=== PATIENT | male | born 1955 | race Caucasian/White ===

== ENCOUNTER 2017-02-17 15:39 | Inpatient (IN) | payer MEDICAID ==
[~2017-02-17] VITALS: Ht 175.3 cm; Wt 113.4 kg
[~2017-02-17 15:39] MED LIST: ADULT LOW DOSE81 MG PO; ASPIRIN325; ASPIRIN325 PO; ATIVAN1 MG; ATIVAN1 MG PO; ATORVASTATIN CA40 MG PO; AUGMENTIN 875875 MG PO; CELEXA 10 MG TA10 M1; CIPRO250 M2 PO; CLARITIN10 MG PO; FLOMAX0.4 MG PO; HYDROCODONE-AP1 EAC6 PO; HYDROXYZINE HCL25 M1 PO; HYDROXYZINE HCL50 MG PO; ISORDIL10 MG PO; ISOSORBIDE MONO60 M1 PO; LIPITOR80 MG PO; LISINOPRIL10 MG PO; LOPRESSOR 50 MG50 M1; LUNESTA3 MG PO; MECLIZINE HCL25 M1; MECLIZINE HCL25 M1 PO; MEDROL DOSPAK21 TAB PO; MIRAPEX0.5 MG; MIRAPEX0.5 MG PO; MIRTAZAPINE15 M1; MS CONTIN 30 MG30 M1 PO; NAPROSYN500 MG PO; NEURONTIN 300300 M1 PO; NITROGLYCERIN0.4 MG SUBLING; NITROQUICK0.4 MG PO; NITROSTAT0.4 MG; NORVASC10 MG PO; OMEPRAZOLE 20 M20 MG PO; ORADENT 0.1% DEN5 G1 TOP; OXYCODONE HCL15 MG PO; OXYCODONE-ACET1 EAC3 PO; OXYCONTIN10 M1 PO; OXYCONTIN20 M1 PO; OXYCONTIN30 MG; OXYCONTIN30 MG PO; OXYCONTIN60 MG PO; OXYCONTIN80 M1 PO; PANTOPRAZOLE SO40 M1 PO; PERCOCET 5-3251 EACH PO; PERCOCET PO; PLAVIX 75 MG TA75 MG PO; PREDNISONE 20 M20 MG PO; PROPRANOLOL 1010 M1 PO; PROTONIX40 M1 PO; RANEXA1000 MG PO; RANITIDINE HCL150 M1; REMERON15 MG PO; REQUIP 1 MG TABL1 M1; RISPERDAL0.5 MG PO; TAMSULOSIN HCL0.4 M1; TOPROL XL50 MG PO; TRAZODONE HCL100 MG PO; TRIAM60; XARELTO20 MG PO; ZANTAC 150MG T150 M1; ZANTAC 150MG T150 MG PO; ZOLOFT 50 MG TA50 M1 PO; ZOLOFT100 MG PO; ZOLOFT50 MG PO
[2017-02-17 15:40] VITALS: BP 135/85
[2017-02-17] MEDS ORDERED: SYNTHROID25 MCG PO (15:51)
[2017-02-17] MEDS ORDERED: PROTONIX40 M1 PO (15:52)
[2017-02-17] MEDS ORDERED: CLONIDINE0.1 PO (15:52)
[2017-02-17] MEDS ORDERED: FLEXERIL PO (15:53)
[2017-02-17] MEDS ORDERED: NEURONTIN 300300 M1 PO (15:53)
[2017-02-17] MEDS ORDERED: ZOLOFT50 MG PO (15:54)
[2017-02-17 15:58] LABS: ABSOLUTE BASOPHILS 0.1 thou/uL (0.0-0.2); ABSOLUTE EOSINOPHILS 0.3 thou/uL (0.0-0.7); ABSOLUTE LYMPHOCYTES 1.5 thou/uL (0.8-5.3); ABSOLUTE MONOCYTES 0.5 thou/uL (0.0-1.2); ABSOLUTE NEUTROPHILS 5.2 thou/uL (1.6-8.1); EOSINOPHILS 3.8 %; HEMATOCRIT 39.8 % (42.0-52.0); HEMOGLOBIN 13.2 gm/dL (14.0-18.0); LYMPHOCYTES 19.8 %; MCH 26.5 pg (26.0-34.0); MCHC 33.2 g/dL (28.0-37.0); MCV 79.9 fL (80.0-100.0); MONOCYTES 6.6 %; MPV 7.4 fl. (7.2-11.1); NUCLEATED RBCS 0 /100WBC; PLATELET COUNT* 228 thou/uL (150-400); POLYS 68.8 %; RBC 4.98 mil/uL (4.50-6.00); RDW-CV 14.9 % (10.5-14.5); WBC 7.5 thou/uL (4.0-11.0)
[2017-02-17 16:12] LABS: ANION GAP 5 mmol/L (7-16); BUN 12 mg/dL (7-18); CALCIUM 8.5 mg/dL (8.5-10.1); CHLORIDE 105 mmol/L (98-107); CO2 30 mmol/L (21-32); CREATININE 1.1 mg/dL (0.6-1.3); GLUCOSE 126 mg/dL (70-99); POTASSIUM 4.2 mmol/L (3.5-5.1); SODIUM 140 mmol/L (136-145)
[2017-02-17 16:22] LABS: ALBUMIN 3.6 g/dL (3.4-5.0); ALKALINE PHOSPHATASE 173 U/L (46-116); LIPASE 106 U/L (73-393); NT-PRO BRAIN NAT PEPTIDE 44 pg/mL (<300); SGOT 28 U/L (15-37); SGPT 58 U/L (30-65); TOTAL BILIRUBIN 0.6 mg/dL (<0.1-1.0); TOTAL PROTEIN 6.7 g/dL (6.4-8.2); TROPONIN-I LEVEL <0.06 ng/mL (<0.06)
[2017-02-17 18:21] VITALS: BP 152/82
[2017-02-17 18:48] VITALS: BP 158/86
[2017-02-17 20:30] VITALS: BP 146/79
[2017-02-18] VITALS: BP 134/79
[2017-02-18 03:51] VITALS: BP 96/54
[2017-02-18 07:38] LABS: CHOLESTEROL 109 mg/dL (<200); HDL CHOLESTEROL 40 mg/dL (>40); LDL CHOLESTEROL 38 mg/dL (<100); TC:HDL 2.7 Ratio (Not establshd); TRIGLYCERIDE 158 mg/dL (<150); VLDL 32 mg/dL (<40)
[2017-02-18 07:39] LABS: SERUM ASSESSMENT Clear
[2017-02-18 08:00] VITALS: BP 104/63
--- NOTE | 2017-02-18 10:57 | EKG ---
[place] [address] ELECTROCARDIOGRAM REPORT Name: INEZ,LEMUEL FIGUEROA Room: [address] ADM [place] .R.#: [id number] Admission: 02/17/17 Attend Phys: Joaquín Hidalgo MD Discharge: Date of : 57 Report #: [id number] THIS REPORT FOR: //name// [facility] ED Test Date: 2017-02-17 Test Time: 15:43:08 Pat Name: LEMUEL WILEY Department: Room: [facility] Gender: M Brake Lining Maker: NURIS : 1955 Requested By: Kyle Childers Order Number: [id number] MD: Wallace Shah Measurements Intervals [place] Rate: 83 P: 34 WI: 237 QRS: 20 QRSD: 110 T: 79 QT: 391 QTc: 460 Interpretive Statements Sinus rhythm Prolonged WI interval Borderline repolarization abnormality Compared to ECG 10/18/2014 21:25:55 No significant changes Electronically Signed On 02-18-2017 10:57:31 LINE DIRECTOR by Wallace Shah [email or web address] <ELECTRONICALLY SIGNED> By: Wallace Shah MD, [facility] 02/18/17 1057 1543 1543 Wallace Shah MD, [facility] /EPI
--- NOTE | 2017-02-18 11:12 | EKG ---
[place] [address] ELECTROCARDIOGRAM REPORT Name: LEUMEL WILEY Room: [address] ADM IN M.R.#: [id number] Admission: 02/17/17 Attend Phys: Joaquín Hidalgo MD Discharge: Date of : 57 Report #: [id number] THIS REPORT FOR: //name// [facility] Test Date: 2017-02-17 Test Time: 23:56:11 Pat Name: LEMUEL WILEY Department: Room: [address] Gender: M Merchandise Presentation Manager: ARACELIS : 1955 Requested By: Joaquín Hidalgo Order Number: [id number] Juan MD: Wallace Shah Measurements Intervals [place] Rate: 71 P: 52 AR: 226 QRS: -2 QRSD: 102 T: 90 QT: 401 QTc: 436 Interpretive Statements Sinus rhythm Prolonged AR interval Borderline repolarization abnormality Baseline wander in lead(s) V5 Electronically Signed On 02-18-2017 11:11:47 AGRICULTURAL AND FORESTRY SUPERVISOR by Wallace Shah [email or web address] <ELECTRONICALLY SIGNED> By: Wallace Shah MD, [facility] 02/18/17 1111 55 55 Wallace Shah MD, FACC /EPI
[2017-02-18 11:30] VITALS: BP 100/60
--- NOTE | 2017-02-18 14:44 | 2DMMODE ---
[place] [address] 2 D/M-MODE ECHOCARDIOGRAM Name: INEZLEMUEL Room: [address] IN .R.#: [id number] Admission: 02/17/17 Attend Phys: Joaquín Hidalgo, Discharge: Date of : 57 Date of Service: 02/18/17 1444 Report #: [id number] THIS REPORT FOR: //name// APPROVED REPORT Study performed: 02/18/2017 09:19:07 EXAM: Comprehensive 2D, Doppler, and color-flow Echocardiogram Patient Location: Bedside BSA: 2.29 HR: 67 bpm BP: 96/54 mmHg Other Information Study Quality: Technically Limited Indications Arrhythmia Chest Pain Hypertension/HDD 2D Dimensions IVSd: 12.49 (7-11mm) LVOT Diam: 22.19 (18-24mm) LVDd: 48.10 mm PWd: 12.09 (7-11mm) Ascending Ao: 36.61 (22-36mm) LVDs: 27.91 (25-40mm) Aortic Root: 35.05 mm Volumes Left Atrial Volume (Systole) LA ESV Index: 20.20 mL/m2 Aortic Valve AoV Peak Jus.: 1.14 m/s AO Peak Gr.: 5.18 mmHg LVOT Max P.18 mmHg AO Mean Gr.: 3.00 mmHg LVOT Mean P.12 mmHg LVOT Max V: 1.02 m/s AO V2 VTI: 20.45 cm LVOT Mean V: 0.67 m/s GENEVA (VTI): 4.40 cm2 LVOT V1 VTI: 23.28 cm Mitral Valve E/A Ratio: 0.96 MV Decel. Time: 225.84 ms MV E Max Jus.: 0.64 m/[place] [address] 2 D/M-MODE ECHOCARDIOGRAM Name: LEMUEL WILEY Room: [address] IN ..#: [id number] Admission: 02/17/17 Attend Phys: Joaquín Hidalgo, Discharge: Date of : 57 Date of Service: 02/18/17 1444 Report #: [id number] MV PHT: 65.49 ms MVA (PHT): 3.36 cm2 TDI E/Lateral E': 6.40 E/Medial E': 7.11 Medial E' Jus.: 0.09 m/s Lateral E' Jus.: 0.10 m/s Pulmonary Valve PV Peak Jus.: 0.85 m/s PV Peak Gr.: 2.92 mmHg Tricuspid Valve RAP Estimate: 5.00 mmHg TR Peak Gr.: 5.06 mmHg RVSP: 10.06 mmHg PA Pressure: 10.06 mmHg Left Ventricle The left ventricle is normal size. moderate hypokinesis of the base of the inferior wall Mild concentric left ventricular hypertrophy. Left ventricular systolic function is normal. The left ventricular ejection fraction is within the normal range. LVEF is 50-55%. The left ventricular diastolic function is normal. Right Ventricle Right ventricle is mildly dilated. The right ventricular systolic function is normal. Atria The left atrium size is normal. Right atrium is mildly dilated. Aortic Valve The aortic valve is normal in structure. Aortic valve is not well visualized. No aortic regurgitation is present. There is no aortic valvular stenosis. Mitral Valve The mitral valve is normal in structure. There is no mitral valve regurgitation noted. No evidence of mitral valve stenosis. Tricuspid Valve The tricuspid valve is normal in structure. Trace tricuspid regurgitation. Pulmonic Valve Pulmonic valve is not well visualized. There is [place] [address] 2 D/M-MODE ECHOCARDIOGRAM Name: LEMUEL WILEY [place] Room: [address] IN [facility]#: [id number] Admission: 02/17/17 Attend Phys: Joaquín Hidalgo, Discharge: Date of : 57 Date of Service: 02/18/17 1444 Report #: [id number] regurgitation. Great Vessels The aortic root is normal in size. IVC is not well visualized. Pericardium There is no pericardial effusion. <Conclusion> LVEF is 50-55%. moderate hypokinesis of the base of the inferior wall Right ventricle is mildly dilated. <ELECTRONICALLY SIGNED> By: Wallace Shah MD, FACC 02/18/17 1444 1444 1444 Wallace Shah MD, FACC /INF
[2017-02-18 15:30] VITALS: BP 84/57
--- NOTE | 2017-02-18 17:33 | EXE ---
[place] [address] STRESS ECHOCARDIOGRAM Name: INEZLEMUEL Room: [address] IN [facility]#: [id number] Admission: 02/17/17 Attend Phys: Joaquín Hidalgo, Discharge: Date of : 57 Date of Service: 02/18/17 1733 Report #: [id number] THIS REPORT FOR: //name// APPROVED REPORT Exam: Dobutamine Stress Echo Indication: Chest pain , Hypertension Patient Location: Echo lab Stress Nurse: Nanci Ellison RN Supervising Physician: Wallace Shah MD Ht: 5 ft 9 in HR: 60 bpm BP: 97/52 mmHg Procedure The patient underwent a Pharmacological Stress Test using Dobutamine. Blood pressure, heart rate, and EKG were monitored. An Echocardiogram was performed by orthodontic technician in four stages in quad fashion. At peak stress, four selected images were obtained and placed side by side with resting images for comparison. Echo Enhancing Agent Indication: Endocardial border delineation Agent(s) / Amount(s) Used: Optison cc Stress Test Details Stress Test: Pharmacological Stress Test using Dobutamine. Reason for pharmacologic stress test: physical limitation. HR Resting HR: 60 bpm Max Heart Rate (APMHR): 160 bpm Max HR Achieved: 124 bpm Target HR (85% APMHR): 136 bpm % of APMHR: 77 Recovery HR: 98 bpm BP Resting BP: 97/52 mmHg Max BP: 101/49 mmHg Recovery BP: 83/49 mmHg ECG Resting ECG: Sinus Rhythm, NSSTT changes Stress ECG: Sinus Rhythm, nonspecific ST-T abnormalities ST Change: Upsloping ST depression Maximum ST Deviation: 0.5 mm Recovery ECG: Sinus Rhythm, [place] [address] STRESS ECHOCARDIOGRAM Name: LEMUEL WILEY Room: [address]#: [id number] Admission: 02/17/17 Attend Phys: Joaquín Hidalgo, Discharge: Date of : 57 Date of Service: 02/18/17 1733 Report #: [id number] Recovery ST Change: Horizontal ST depression Recovery ST Deviation: 0.5 mm Clinical Reason for Termination: Completed protocol Highest Stage Achieved: Stage 0: 1.7 mph at 0% grade. Exercise capacity: 1.0 METs Pre-Stress Echo The resting Echocardiogram showed normal left ventricular contractility with an estimated Ejection Fraction of about 55-60%. Post-Stress Echo The stress Echocardiogram showed normal left ventricular contractility with an estimated Ejection Fraction of about 65-70%. Conclusion Clinical Response: Indeterminant Stress ECG Response: Indeterminant Stress Echo Images: Indeterminant Indeterminate dobutamine stress echo due to inability to achieve target heart rate and suboptimal imaging Other Information Study Quality: Technically Limited Technically limited study due to body habitus. <Conclusion> Indeterminate dobutamine stress echo due to inability to achieve target heart rate and suboptimal imaging <ELECTRONICALLY SIGNED> By: Wallace Shah MD, FACC 02/18/17 1733 [id number] Wallace Shah MD, FACC /INF
[2017-02-18 19:45] VITALS: BP 111/58
[2017-02-18 22:18] LABS: BE -1.7 mmol/L (-2 to +3); HCO3 24.1 mmol/L (22.0-26.0); PCO2 44.5 mmHg (35.0-45.0); PO2 69.6 mmHg (75.0-100.0); pH 7.351 (7.340-7.450)
[2017-02-19] VITALS (7 sets, daily range): BP systolic 112–141; BP diastolic 57–75
--- NOTE | 2017-02-20 15:00 | CON ---
[address] [address] CONSULTATION Name: INEZLEMUEL Room: [address] IN M.R.#: [id number] Admission: 02/17/17 Attend Phys: Joaquín Hidalgo MD Discharge: 02/19/17 Date of : 57 Report #: [id number] THIS REPORT FOR: //name// CC: [facility] physician/PCP Joaquín Hidalgo DATE OF SERVICE: 02/18/2017 HISTORY OF PRESENT ILLNESS: The patient is a 61-year-old single white male who I was asked to see in the hospital today after he complained of chest pain. The patient presented in 2010 with chest pain and had 3 coronary artery stents placed in his right coronary artery in [place], [place]. In 2011, he had repeat heart catheterization here at [place] that showed no restenosis of the stent. I actually performed repeat cardiac catheterization in 2014 here that showed ejection fraction of 60% with no restenosis of the stents. The patient has chronic back pain, is not very active and ambulates with a cane. He currently follows with Dr. Morfin, lye treater at [place]. He has not had a stress test for several years. The patient states that yesterday he noticed that his blood pressure is elevated. He felt a pressure in his chest, went into his left arm, and he felt short of breath. He called an ambulance and brought here to [facility]. He was admitted for further evaluation and treatment. He denied the pain being related to food. He has had no blood in stool. He denied the pain being related to coughing. He has had no trauma to his chest. He does note exertional dyspnea and occasional palpitations, but no syncope. PAST MEDICAL HISTORY: Otherwise significant for 3 back surgeries. He goes to the pain clinic, had a previous pain pump implanted, which was subsequently removed. He has a history of restless leg syndrome. He has had kidney stones. He has a history of hypertension and hyperlipidemia. MEDICATIONS: Consist of aspirin, clonidine, Neurontin, Synthroid, lisinopril, oxycodone, Protonix, sertraline, and Lipitor. ALLERGIES: He has intolerance to HYDROCODONE and KETOROLAC. FAMILY HISTORY: His mother had heart disease. His brother had stents. SOCIAL HISTORY: He is , lives , [place] by himself. He does have 2 daughters, live in [place]. No smoking, no alcohol use. 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 REVIEW OF SYSTEMS: He apparently had a previous stroke with residual left leg weakness. He has COPD and uses an inhaler. He has had a hiatal hernia in the past. He has had a kidney stone. No cancer. He has anxiety disorder, sees a psychiatrist. He has been hospitalized before at [facility] [address] CONSULTATION Name: INEZLEMUEL Room: [address]#: [id number] Admission: 02/17/17 Attend Phys: Joaquín Hidalgo MD Discharge: 02/19/17 Date of : 57 Report #: [id number] PHYSICAL EXAMINATION: GENERAL: Revealed a middle-aged male who appeared in no acute distress. VITAL SIGNS: He had a blood pressure 110/60, pulse 60. He is afebrile. HEENT: He is anicteric. Conjunctivae are pink. Mucous membranes are moist. NECK: Veins nondistended. No carotid bruits. Neck supple. CHEST: Clear to auscultation. HEART: Regular rate and rhythm. ABDOMEN: Soft, nontender. EXTREMITIES: Had no edema. Dorsalis pedis pulse 1+ bilaterally. SKIN: Cool and dry. NEUROLOGIC: Nonfocal. LYMPH: No adenopathy. MUSCULOSKELETAL: No joint effusion. His ECG shows a sinus rhythm. There was ST segment depression in V4, V5 and V6. LAB WORK: Sodium 140, creatinine 1.1. His troponin 0.06. Cholesterol 109, triglyceride 158, HDL 40, LDL 38. White blood cell count 7.5, hemoglobin 13.2. IMPRESSION AND RECOMMENDATIONS: 1. Possible unstable angina. Consider repeat cardiac catheterization. 2. Hypertension. The patient has been on clonidine and KIKI inhibitor. 3. Hyperlipidemia. The patient is on a statin drug. 4. Restless leg syndrome. 5. Chronic back pain. The patient is on narcotics. 6. Previous stroke with residual left-sided weakness. The patient had carotid Doppler studies in 2013, that showed no significant stenosis. <ELECTRONICALLY SIGNED> By: Wallace Shah MD, FACC 02/20/17 1500 1029 [id number] Shah MD, FACC /nt
== END 2017-02-19 19:29 | disposition home health service (06) | DRG 280 ==
LOC: M.ERS 15:39 → M.TBA-ER 17:08 → M.2W 17:08
PROVIDERS: Emergency Medicine Emergency Medical Services; Internal Medicine; ADMIT Internal Medicine
DX: I21.4 Non-ST elevation (NSTEMI) myocardial infarction (principal); I25.110 Atherosclerotic heart disease of native coronary artery with unstable angina pectoris; I50.31 Acute diastolic (congestive) heart failure; F11.23 Opioid dependence with withdrawal; E78.5 Hyperlipidemia, unspecified; F32.9 Major depressive disorder, single episode, unspecified; G25.81 Restless legs syndrome; J44.9 Chronic obstructive pulmonary disease, unspecified; E78.00 Pure hypercholesterolemia, unspecified; G89.29 Other chronic pain; M54.9 Dorsalgia, unspecified; I95.1 Orthostatic hypotension; I11.0 Hypertensive heart disease with heart failure; R26.9 Unspecified abnormalities of gait and mobility; Z79.82 Long term (current) use of aspirin; Z79.899 Other long term (current) drug therapy; Z87.442 Personal history of urinary calculi; Z86.73 Personal history of transient ischemic attack (TIA), and cerebral infarction without residual deficits; Z95.5 Presence of coronary angioplasty implant and graft; Z88.6 Allergy status to analgesic agent; Z88.8 Allergy status to other drugs, medicaments and biological substances; Z82.49 Family history of ischemic heart disease and other diseases of the circulatory system

== ENCOUNTER 2017-03-05 08:32 | Inpatient (IN) | payer MEDICAID ==
[~2017-03-05] VITALS: Ht 177.8 cm; Wt 119.3 kg
[~2017-03-05 08:32] MED LIST changes: +CLONIDINE0.1 PO; +FLEXERIL PO; +SYNTHROID25 MCG PO
[2017-03-05 08:36] VITALS: BP 186/94
[2017-03-05 09:14] LABS: ABSOLUTE BASOPHILS 0.1 thou/uL (0.0-0.2); ABSOLUTE EOSINOPHILS 0.3 thou/uL (0.0-0.7); MPV 7.6 fl. (7.2-11.1); NUCLEATED RBCS 0 /100WBC; RDW-CV 15.3 % (10.5-14.5); WBC 7.4 thou/uL (4.0-11.0)
[2017-03-05 09:18] LABS: ABSOLUTE MONOCYTES 0.7 thou/uL (0.0-1.2); ABSOLUTE NEUTROPHILS 4.3 thou/uL (1.6-8.1); BASOPHILS 1.4 %; EOSINOPHILS 4.1 %; HEMATOCRIT 42.3 % (42.0-52.0); HEMOGLOBIN 14.5 gm/dL (14.0-18.0); LYMPHOCYTES 26.9 %; MCHC 34.4 g/dL (28.0-37.0); MCV 78.5 fL (80.0-100.0); MONOCYTES 8.9 %; PLATELET COUNT* 264 thou/uL (150-400); POLYS 58.7 %; RBC 5.39 mil/uL (4.50-6.00)
[2017-03-05 09:25] LABS: ANION GAP 8 mmol/L (7-16); BUN 10 mg/dL (7-18); CALCIUM 8.7 mg/dL (8.5-10.1); CHLORIDE 104 mmol/L (98-107); CO2 28 mmol/L (21-32); CREATININE 1.1 mg/dL (0.6-1.3); GLUCOSE 128 mg/dL (70-99); POTASSIUM 3.7 mmol/L (3.5-5.1); SODIUM 140 mmol/L (136-145)
[2017-03-05 09:35] LABS: ALBUMIN 3.5 g/dL (3.4-5.0); ALKALINE PHOSPHATASE 181 U/L (46-116); LIPASE 110 U/L (73-393); NT-PRO BRAIN NAT PEPTIDE 122 pg/mL (<300); SGOT 27 U/L (15-37); SGPT 53 U/L (30-65); TOTAL BILIRUBIN 0.8 mg/dL (<0.1-1.0); TOTAL PROTEIN 6.9 g/dL (6.4-8.2); TROPONIN-I LEVEL <0.06 ng/mL (<0.06)
[2017-03-05 13:45] VITALS: BP 131/81
[2017-03-05 13:47] VITALS: BP 145/94
--- NOTE | 2017-03-05 14:00 | NUR ---
RECEIVED REPORT FROM TAURUS IN ER. PT TRANSFERED TO TELE AT 1345. VSS. O2 SAT 94% ON ROOM AIR. MAIL LIST LIBRARIAN PLACED TRACING SR WITH 1 DEGREE. ADMISSION ASSESSMENT, HISTORY, EDUCATION AND VITALS COMPLETED CHARTED. STRIP PRINTED AND PUT IN CHART. FALL AGREEMENT SIGNED. PT ORIENTED TO ROOM, BED AND CALL LIGHT - COMMUNICATES UNDERSTANDING. PT REPORTS BACK PAIN AT 8/10. SEE EMAR FOR ADMINISTRATION AND REASSESSMENT OF PAIN MEDS. PT REPORTS SOME CHEST HEAVINESS AT TIMES. TROPONIN'S NEGATIVE. IV SALINE LOCKED. PT EATING AND DRINKING WITHOUT ISSUE. FALL PRECAUTIONS IN PLACE. CALL LIGHT IS WITHIN REACH. WILL CONTINUE TO MONITOR.
[2017-03-05] MEDS ORDERED: OXYCONTIN10 M1 PO (15:58)
[2017-03-05 16:18] VITALS: BP 147/85
--- NOTE | 2017-03-05 18:33 | NUR ---
VSS. O2 SAT REMAINS >90% ON ROOM AIR. SOLUTION ARCHITECT REMAINS IN PLACE TRACING SR WITH FIRST DEGREE. IV SALINE LOCKED. PT HAS CONTINUED TO REPORT LOWER BACK PAIN THAT HAS BEEN PARTIALLY MANAGED WITH IV PAIN MEDICATION. PT COMPLETED HEAD CT. PT CONTINUING TO EAT AND DRINK WITHOUT ISSUE. PT VOIDING PER URINAL AT BEDSIDE. PT RESTED THIS AFTERNOON. PT PARTIALLY PROGRESSING TOWARDS GOALS. FALL PRECAUTIONS IN PLACE. CALL LIGHT IS WITHIN REACH. HOURLY ROUNDING PERFORMED. WILL CONTINUE TO MONITOR FOR DURATION OF SHIFT.
[2017-03-05 19:55] VITALS: BP 138/64
--- NOTE | 2017-03-05 21:27 | NUR ---
UPON ARRIVING IN PTS ROOM, PT WAS VERY LETHARGIC AND BARELY ABLE TO SPEAK. PT WAS ALSO MUMBLING FOR MORE FENTANYL EVEN THOUGH HE WAS UNABLE TO STAY AWAKE. DR HUNG NOTIFIED AND FENTANYL DISCONTINUED.
[2017-03-06] VITALS (8 sets, daily range): BP systolic 86–140; BP diastolic 53–75
[2017-03-06 05:41] LABS: HEMATOCRIT 41.8 % (42.0-52.0); HEMOGLOBIN 13.9 gm/dL (14.0-18.0); MCH 26.6 pg (26.0-34.0); MCHC 33.2 g/dL (28.0-37.0); MCV 79.9 fL (80.0-100.0); MPV 7.5 fl. (7.2-11.1); RBC 5.23 mil/uL (4.50-6.00); RDW-CV 15.5 % (10.5-14.5); WBC 6.4 thou/uL (4.0-11.0)
[2017-03-06 06:10] LABS: ALBUMIN 3.4 g/dL (3.4-5.0); ALKALINE PHOSPHATASE 175 U/L (46-116); ANION GAP 6 mmol/L (7-16); BUN 14 mg/dL (7-18); CALCIUM 8.7 mg/dL (8.5-10.1); CHLORIDE 104 mmol/L (98-107); CO2 29 mmol/L (21-32); CREATININE 1.5 mg/dL (0.6-1.3); GLUCOSE 116 mg/dL (70-99); POTASSIUM 4.4 mmol/L (3.5-5.1); SGOT 29 U/L (15-37); SGPT 53 U/L (30-65); SODIUM 139 mmol/L (136-145); TOTAL BILIRUBIN 0.6 mg/dL (<0.1-1.0); TOTAL PROTEIN 6.6 g/dL (6.4-8.2); TROPONIN-I LEVEL <0.06 ng/mL (<0.06)
[2017-03-06 12:22] LABS: URINE BILIRUBIN NEGATIVE (Negative); URINE BLOOD NEGATIVE (Negative); URINE CLARITY SL CLOUDY; URINE COLOR STRAW; URINE GLUCOSE-RANDOM NEGATIVE (Negative); URINE KETONES NEGATIVE (Negative); URINE LEUKOCYTES-REFLEX 1+ (Negative); URINE NITRITE-REFLEX POSITIVE (Negative); URINE PROTEIN NEGATIVE (Negative); URINE SPECIFIC GRAVITY >= 1.030 (1.005-1.030); URINE UROBILINOGEN 0.2 E.U./dl (0.2-1.0)
[2017-03-06 12:29] LABS: SQUAMOUS 4-10 Moderate /LPF (0-3)
[2017-03-06 12:30] LABS: CASTS None Seen /LPF (None Seen); CRYSTALS None Seen /LPF (None Seen); URINE RBC None Seen /HPF (0-2)
--- NOTE | 2017-03-06 15:56 | EKG ---
[place] [address] ELECTROCARDIOGRAM REPORT Name: INEZLEMUEL FIGUEROA Room: [address] ADM [place] .R.#: [id number] Admission: 03/05/17 Attend Phys: Carmen Salvador MD Discharge: Date of : 57 Report #: [id number] THIS REPORT FOR: //name// [facility] ED Test Date: 2017-03-05 Test Time: 08:39:17 Pat Name: LEMUEL WILEY Department: Room: [facility] Gender: M Desktop Publishing Specialist: Melinda BONILLA : 1955 Requested By: Allan Holloway Order Number: [id number] MD: Christiano Park Measurements Intervals [place] Rate: 74 P: 37 MA: 208 QRS: -14 QRSD: 102 T: 38 QT: 378 QTc: 420 Interpretive Statements Sinus rhythm Atrial premature complex Borderline prolonged MA interval Abnormal R-wave progression, late transition Compared to ECG 02/17/2017 23:56:11 Atrial premature complex(es) now present Electronically Signed On 03-06-2017 15:56:43 NAVAL INSPECTOR by Christiano Park [email or web address] <ELECTRONICALLY SIGNED> By: Roberto Park MD, [facility] 03/06/17 1556 0839 [id number] Roberto Park MD, [facility] /EPI
--- NOTE | 2017-03-06 19:36 | NUR ---
PATIENT PARTIALLY PROGRESSING TOWARDS GOALS. BLOOD PRESSURE CONTINUES TO BE SOFT. IVF INFUSING. PATIENT WILL WAKE UP TO EAT AND IS EASILY ARROUSED BUT CONTINUES TO BE DROWSY. SCOPALAMINE PATCH REMOVED. PATIENT IS TOLERATING HIS DIET WELL WITHOUT VOMITING. REPOSITIONED FOR COMFORT. NEW IV STARTED PER HOUSE SUPERVISER FOR IVF AND ANTIBIOTIC DRIPS. BED ALARM ON. HOURLY ROUNDING CHARTED. CALL LIGHT WITHIN REACH. WILL CONTINUE TO MONITOR.
[2017-03-06 19:51] LABS: AMP/METHAMP POSITIVE (Negative); BARBITURATES Negative (Negative); BENZODIAZEPINES Negative (Negative); COCAINE Negative (Negative); METHADONE Negative (Negative); OPIATES POSITIVE (Negative); PCP Negative (Negative); THC POSITIVE (Negative)
[2017-03-07 00:30] VITALS: BP 100/77
--- NOTE | 2017-03-07 03:44 | NUR ---
ASSUMED CARE OF PT AT 1900. PT IS ALERT AND ORIENTED. VSS. PERESSENCE. PT HAS BEEN ASLEEP FOR MOST OF THIS SHIFT. PT IS VERY SOMNOLENT. PT WOKE UP ONLY ONCE TO ASK FOR PAIN MEDS. PTS URINE DRUG SCREEN WAS POSITIVE FOR AMPHETAMINES/ METHAMPHETAMINES. PT IS IN SINUS RYTHM ON THE TELEMETRY. PT IS RESTING COMFORTABLY IN BED. RESPIRATIONS ARE EVEN AND NONLABORED. WILL CONTINUE TO MONITOR PT.
[2017-03-07 04:01] VITALS: BP 93/61
[2017-03-07 08:15] VITALS: BP 91/55
--- NOTE | 2017-03-07 10:00 | NUR ---
ASSUMED CARE OF PT AT 0730. PT RESTING IN BED WITH EYES CLOSED. PT VERY DROWSY AND LETHARGIC, DIFFICULT TO AROUSE. WHEN PT DOES AWAKE, ABLE TO ANSWER QUESTIONS APPROPRIATELY AND STATES I AM VERY TIRED. SCHEDULED PAIN MEDICATIONS PO HELD DUE TO CURRENT STATUS. PT DOES NOT APPEAR TO BE IN ANY PAIN AT THIS TIME. PT TRACING SR WITH FIRST DEGREE ON THE PROGRAMMER ANALYST. ON RA SAT 88%. PT PLACED ON 2L NC SAT 94%. PT DENIES ANY SHORTNESS OF BREATH. IVF. LEFT SIDED WEAKNESS NOTED FROM STROKE IN PAST. PT GOAL FOR TODAY IS TO BE MORE ALERT AND WORK WITH PHYSICAL AND OCCUPATIONAL THERAPY. AM ASSESSMENT CHARTED. MEDICATIONS PER APR. PT REPOSITIONS SELF IN BED WITH REMINDERS. HOURLY ROUNDING OBSERVED. BED IN LOW POSITION. CALL LIGHT WITHIN REACH. WILL CONTINUE PLAN OF CARE.
[2017-03-07 10:45] LABS: INFLUENZA A ANTIGEN None Detected (None Detect); INFLUENZA B ANTIGEN None Detected (None Detect)
[2017-03-07 11:30] VITALS: BP 89/59
[2017-03-07 13:19] LABS: ABSOLUTE BASOPHILS 0.1 thou/uL (0.0-0.2); ABSOLUTE EOSINOPHILS 0.6 thou/uL (0.0-0.7); ABSOLUTE LYMPHOCYTES 2.6 thou/uL (0.8-5.3); ABSOLUTE MONOCYTES 0.8 thou/uL (0.0-1.2); ABSOLUTE NEUTROPHILS 5.7 thou/uL (1.6-8.1); BASOPHILS 1.2 %; EOSINOPHILS 6.3 %; HEMATOCRIT 40.6 % (42.0-52.0); HEMOGLOBIN 13.2 gm/dL (14.0-18.0); LYMPHOCYTES 26.7 %; MCH 26.3 pg (26.0-34.0); MCHC 32.5 g/dL (28.0-37.0); MCV 80.9 fL (80.0-100.0); MONOCYTES 7.9 %; MPV 7.9 fl. (7.2-11.1); NUCLEATED RBCS 0 /100WBC; PLATELET COUNT* 244 thou/uL (150-400); POLYS 57.9 %; RBC 5.02 mil/uL (4.50-6.00); RDW-CV 15.7 % (10.5-14.5); WBC 9.8 thou/uL (4.0-11.0)
[2017-03-07 13:36] LABS: CALCIUM 8.4 mg/dL (8.5-10.1); POTASSIUM 4.8 mmol/L (3.5-5.1)
[2017-03-07 14:15] LABS: CREATININE 4.7 mg/dL (0.6-1.3)
[2017-03-07 15:30] VITALS: BP 102/62
--- NOTE | 2017-03-07 16:14 | NUR ---
CM ASSESSMENT: Pt is A&O. Resides at home alone. Independent with ADLS, Pt has a nozzle cement sprayer helper that assist with cleaning and errands. Pt prepares his own meals. Pt has a walker and cane that he can use for mobility. Reports a limited support sx. Pt tested positive for meth, CM offered community resources, Pt stated "it was just one time, I don't need help." Goal is to return home once medically stable. Following.
--- NOTE | 2017-03-07 17:51 | NUR ---
NO ACUTE CHANGES THROUGHOUT SHIFT. REFER TO CHARTING. PT CONTINUES TO BE VERY DROWSY AND SOMNELENT THROUGHOUT SHIFT. PT ARROUSABLE WITH LOUD VERBAL STIMULI AND AWAKES FOR SHORT PERIODS OF TIME AND THEN BACK TO SLEEP. DR ALEJANDRO HERE TO SEE PT. ORDERS RECEIVED TO DISCONTINUE SCHEDULED PAIN MEDICATIONS. REFER TO EMAR. IVF DISCONTINUED. PT CONTINUES TO TRACE SR WITH FIRST DEGREE AND OCCASIONAL PAC'S ON THE BLUE LEATHER SETTER. ON 2L NC SAT 93%. PT DOES NOT APPEAR TO BE IN ANY PAIN OR SHORT OF BREATH. BLOOD PRESSURE REMAINS SOFT THROUGHOUT SHIFT. PT NOT PROGRESSING TOWARDS GOALS TODAY PT SLEPT THROUGH ENTIRE SHIFT.
[2017-03-07 20:00] VITALS: BP 112/83
[2017-03-07 22:33] LABS: BE -7.5 mmol/L (-2 to +3); HCO3 19.7 mmol/L (22.0-26.0); PCO2 46.6 mmHg (35.0-45.0); PO2 92.3 mmHg (75.0-100.0)
[2017-03-07 22:36] LABS: pH 7.244 (7.340-7.450)
[2017-03-07 22:53] LABS: CALCIUM 8.3 mg/dL (8.5-10.1); CREATININE 5.6 mg/dL (0.6-1.3); POTASSIUM 5.1 mmol/L (3.5-5.1)
--- NOTE | 2017-03-08 | NUR ---
PATIENT WAS VERY LETHARGIC AND HARD TO AROUSE UPON ASSESSMENT. PATIENT NOTED TO HAVE HAD A PREVIOUS STROKE. ATTEMPTED TO COMPLETE AN NIH, HOWEVER, PATIENT UNABLE TO STAY AWAKE LONG ENOUGH TO FOLLOW COMMANDS. LABS REVIEWED. CREATININE NOTED TO SIGNIFICANTLY INCREASED FROM 1.[address] BOCANEGRA NOTIFIED. ORDERS RECIEVED FOR FLUID BOLUS, ABGS, LACTIC ACID, BMP, BROWN CATHETER INSERTION, AND RANDOM VANCOMYCIN. LABS ORDERED AND RESULTS REVIEWED, CALLED TO [facility]. ADDITIONAL ORDERS RECIEVED TO PLACE PATIENT ON BIPAP. BROWN IN PLACE WITH ADEQUATE OUTPUT. CALL LIGHT WITHIN REACH
[2017-03-08 00:22] VITALS: BP 90/61
[2017-03-08 04:00] VITALS: BP 105/52
[2017-03-08 05:50] LABS: HEMATOCRIT 38.2 % (42.0-52.0); HEMOGLOBIN 12.3 gm/dL (14.0-18.0); MCH 26.3 pg (26.0-34.0); MCHC 32.1 g/dL (28.0-37.0); MCV 81.9 fL (80.0-100.0); MPV 8.1 fl. (7.2-11.1); RBC 4.67 mil/uL (4.50-6.00); RDW-CV 15.6 % (10.5-14.5); WBC 8.9 thou/uL (4.0-11.0)
[2017-03-08 06:27] LABS: CALCIUM 7.9 mg/dL (8.5-10.1); POTASSIUM 5.2 mmol/L (3.5-5.1)
[2017-03-08 06:28] LABS: CREATININE 4.5 mg/dL (0.6-1.3)
--- NOTE | 2017-03-08 07:01 | NUR ---
PATIENT NOT PROGRESSING TOWARDS GOALS: PATIENT REMAINS LETHARGIC AND HARD TO AROUSE. PATIENT WAS COMPLIANT WITH BIPAP ALL SHIFT. BROWN REMAINS IN PLACE TO DD. PATIENT REMAINS WITH SOFT BLOOD PRESSURES DESPITE FLUID BOLUSES. HOURLY ROUNDING OBSERVED. CALL LIGHT WITHIN REACH
[2017-03-08 08:00] VITALS: BP 109/56
[2017-03-08 10:59] LABS: CALCIUM 8.1 mg/dL (8.5-10.1); CREATININE 3.2 mg/dL (0.6-1.3); POTASSIUM 4.9 mmol/L (3.5-5.1)
--- NOTE | 2017-03-08 11:16 | NUR ---
ASSUMED CARE OF PT AT 0730. PT RESTING IN BED WITH EYES CLOSED APPEARS TO BE SLEEPING. BIPAP IN PLACE 03/09 RR 12 FI02-35%. PT LETHARGIC, SOMNELENT AND AROUSABLE WITH LOUD VERBAL STIMULI. PT WILL WAKE UP AND ANSWER ORIENTATION QUESTIONS APPROPRIATELY AND IMMEDIATELY GOES BACK TO SLEEP. DR ALEJANDRO HERE TO SEE PT. ORDERS RECEIVED FOR REPEAT LABS WHICH CAME BACK IMPROVED CR 4.5 DOWN TO 3.2. IVF CHANGED TO SODIUM BICARB AT 150 ML/HR. ABDOMINAL ULTRASOUND ORDERED FOR LIVER TEXTURE- REFER TO RESULTS. NEURO CONSULT ORDERED FOR AMS AND ELEVATED AMMONIA LEVELS. AWAITING CALL BACK AT THIS TIME. LACTULOSE ORDERED FOR AMMONIA LEVELS. REFER TO EMAR. CRITICAL VANC LEVEL BACK AT 30. VANC DISCONTINUED LAST NOC. NEPHROLOGY HERE TO SEE PT. ORDERS RECEIVED TO CONTINUE WITH IVF, MONITOR I/O AND RENAL ULTRASOUND ORDERED FOR SELVIN. PT TRACING SR WITH FIRST DEGREE AND PACS ON THE GASTROINTESTINAL TECHNICIAN. BROWN TO DEPENDENT DRAINAGE. GOOD URINE OUTPUT. AM ASSESSMENT CHARTED. MEDICATIONS PER APR. PT REPOSITIONED EVERY 2 HOURS FOR COMFORT. HOURLY ROUNDING OBSERVED. BED IN LOW POSITION. BED ALARM IN PLACE. FALL PRECAUTIONS IN PLACE. CALL LIGHT WITHIN REACH. WILL CONTINUE PLAN OF CARE.
[2017-03-08 12:03] VITALS: BP 112/60
[2017-03-08 15:52] VITALS: BP 141/60
--- NOTE | 2017-03-08 17:47 | NUR ---
PT SLOWLY PROGRESSING TOWARDS GOALS. PT MORE ALERT THIS AFTERNOON. NEURO HERE TO SEE PT. ORDERS RECEIVED FOR MRI HEAD AND EEG. UNABLE TO CONTACT PT FAMILY FOR MRI QUESTIONAIRE. WILL ATTEMPT AGAIN LATER THIS EVENING. PT CURRENTLY HAVING EEG DONE AT THIS TIME. PT ON 2.5 L NC THROUGHOUT DAY PER DR ALEJANDRO AND CURTIS AT [facility]. PT TOLERATED NC WELL. SODIUM BICARB INFUSING AT 150 ML/HR. PT HAD ABDOMEN ULTRASOUND AND RENAL ULTRASOUND TODAY. REFER TO RESULTS. BROWN TO DEPENDENT DRAINAGE. GOOD URINE OUTPUT THROUGHOUT SHIFT. PT CONTINUES TO TRACE SR WITH FIRST DEGREE AND PACS ON THE ANGLE SHEAR SET UP OPERATOR. PT REFUSED 1700 DOSE OF LACTULOSE. EDUCATION GIVEN. PT WORKED WITH PHYSICAL THERAPY TODAY- UP TO EDGE OF BED WITH MAX ASSIST. TOLERATED FAIR. MEDICATIONS PER APR. PT REPOSITIONED EVERY 2 HOURS FOR COMFORT. HOURLY ROUNDING OBSERVED. BED IN LOW POSITION. BED ALARM IN PLACE. FALL PRECAUTIONS IN PLACE. CALL LIGHT WITHIN REACH. WILL CONTINUE PLAN OF CARE.
[2017-03-08 20:00] VITALS: BP 139/61
[2017-03-09] VITALS (7 sets, daily range): BP systolic 142–172; BP diastolic 78–97
[2017-03-09 05:48] LABS: CALCIUM 8.3 mg/dL (8.5-10.1); TOTAL BILIRUBIN 1.1 mg/dL (<0.1-1.0); TOTAL PROTEIN 5.6 g/dL (6.4-8.2)
[2017-03-09 05:49] LABS: CREATININE 1.4 mg/dL (0.6-1.3); POTASSIUM 3.9 mmol/L (3.5-5.1)
--- NOTE | 2017-03-09 07:00 | NUR ---
Pt states he cannot remember "how he got here." Told pt he had been lethargic and sleepy for past couple of days. Assisted up to BSC for bowel movement at around MN. Up X2 max assist. Pt was able to stand, but unable to pivot or move feet without a lot of help. Pt states he felt "strange," and said "yes" when asked if he felt dizzy. Pt had very large BM, then was assisted back to bed. Pt reported feeling better after lying down. VSS. Reported having pain to back when assisted to lying position; states he's had multiple back surgeries. Pt found to have IV removed at 0525, reported by windows security analyst. New IV inserted. Pt does not recall removing IV. Pt also removed lead wire from chest on two occasions. Pt vague about whether he removed leads. Pt made statements about wanting or needing to go home, but not grasping the importance of remaining in the hospital until cleared by physicians. Will continue to monitor.
--- NOTE | 2017-03-09 10:00 | NUR ---
ASSUMED CARE OF PT AT 0730. PT RESTING IN BED. PT AWAKE, A&0X3-4, TALKATIVE THIS AM ANSWERING QUESTIONS. PT STATED HIS DOG A WEEK AGO AND HAS REALLY MESSED HIM UP. PT ALSO REQUESTING TO SPEAK WITH DAUGHTER. THIS RN CALLED DAUGHTER TO GET MRI QUESTIONAIRE FILLED OUT. DAUGHTER STATED THAT PT IS IN AND OUT OF HOSPITALS, MOSTLY [facility] AND [facility]. 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 DAUGHTER ALSO STATED THAT PT WAS BROUGHT IN BY FRIEND THAT LIVES IN [facility]. PT GOT TO EDGE OF BED AND STOOD WITH PHYSICAL THERAPY. PT UP TO BS WITH MAX ASSIST OF 2. LEFT SIDED WEAKNESS MAINLY LE NOTED FROM STROKE IN PAST. LLE ELANA. PT HAD LARGE BOWEL MOVEMENT. PT TRACING SR WITH PAC'S AND FIRST DEGREE ON THE MANAGER DATA CENTER. ON RA SAT UPPER 90'S. PT DENIES ANY SHORTNESS OF BREATH. PT DENIES ANY PAIN, STATES HE IS JUST SORE. BROWN TO DEPENDENT DRAINAGE WITH GOOD URINE OUTPUT. CR NOTED TO DROP TO 1.4 TODAY. IVF. PT GOAL FOR TODAY IS TO INCREASE ACTIVITY, POSSIBLE MRI AND MONITOR ORIENTATION. AM ASSESSMENT CHARTED. MEDICATIONS PER APR. PT REPOSITIONED EVERY 2 HOURS FOR COMFORT. HOURLY ROUNDING OBSERVED. BED IN LOW POSITION. BED ALARM IN PLACE. FALL PRECAUTIONS IN PLACE. CALL LIGHT WITHIN REACH. WILL CONTINUE PLAN OF CARE.
--- NOTE | 2017-03-09 17:39 | NUR ---
NO ACUTE CHANGES THROUGHOUT SHIFT. REFER TO CHARTING. PT WENT DOWN FOR MRI, NOTHING ACUTE NOTED. REFER TO RESULTS. DR ALEJANDRO HERE TO SEE PT. ORDERS RECEIVED TO CHANGE IVF TO NS. CURRENTLY INFUSING AT 100ML/HR TO RIGHT FOREARM. PT CONTINUES TO BE ALERT AND ORIENTED, FORGETFUL AND CONFUSED AT TIMES. PT CONTINUES TO TRACE SR WITH FIRST DEGREE AND PACS ON THE LETTERSET PRESS SET UP OPERATOR. ON RA SAT UPPER 90'S. DENIES ANY SHORTNESS OF BREATH OR PAIN. BROWN TO DEPENDENT DRAINAGE. GOOD URINE OUTPUT. LEFT SIDED WEAKNESS NOTED. MEDICATIONS PER APR. PT REPOSITIONED EVERY 2 HOURS FOR COMFORT. HOURLY ROUNDING OBSERVED. BED IN LOW POSITION. BED ALARM IN PLACE. FALL PRECAUTIONS IN PLACE. CALL LIGHT WITHIN REACH. WILL CONTINUE PLAN OF CARE.
[2017-03-10] VITALS (9 sets, daily range): BP systolic 168–185; BP diastolic 78–100
[2017-03-10 04:58] LABS: HEMATOCRIT 38.9 % (42.0-52.0); MCH 26.5 pg (26.0-34.0); MCHC 33.5 g/dL (28.0-37.0); MCV 79.2 fL (80.0-100.0); MPV 7.9 fl. (7.2-11.1); RBC 4.91 mil/uL (4.50-6.00); RDW-CV 15.1 % (10.5-14.5); WBC 6.4 thou/uL (4.0-11.0)
[2017-03-10 05:10] LABS: ALBUMIN 3.2 g/dL (3.4-5.0); CALCIUM 8.6 mg/dL (8.5-10.1); TOTAL BILIRUBIN 1.1 mg/dL (<0.1-1.0); TOTAL PROTEIN 6.5 g/dL (6.4-8.2)
--- NOTE | 2017-03-10 07:02 | NUR ---
Pt has stated multiple times that he wants to go home today. BP has been 170s/80s-90s. Paged physician and received orders for clonidine, then amlodipine. However, BP has remained 170s/80s-90s. Asymptomatic. Appears calm and denies pain. Pt up to [facility] at 2114 for BM. Transferred well with 2 assist, walker, and gait belt. Will continue to monitor.
--- NOTE | 2017-03-10 10:16 | NUR ---
ASSUMED CARE OF PT AT 0730 AFTER RECIEVING BEDSIDE REPORT FROM [facility] SHIFT NURSE. PT CONTINUES TO BE ALERT AND ORIENTED X2 PERSON AND PLACE. PT AMBULATING TO THE BATHROOM WITH WITH HIS CANE ANS SBA. BROWN RERMOVED THIS MORNING AND PT HAS URINATED ONE VIA URINAL AND ONCE VIA TOILET. PT DENIES AND BURNING WITH URINATION, FREQUENCY OR URGENCY. NURSING WILL CONTINUE TO MONITOR.
[2017-03-10] MEDS ORDERED: LACTULOSE20 GM/30 M PO (13:28)
--- NOTE | 2017-03-10 13:31 | NUR ---
Spoke with Pt's dtr, she confirmed that Pt already has inhome care providers and a nurse through [facility]. CM will fax dc orders once available. CM issued a cab voucher to get Pt home, family unable to provide dc transportation.
--- NOTE | 2017-03-10 17:02 | NUR ---
PT DISCHARGED HOME VIA CAB WITH VOUCHER. PT SETUP FOR HOME HEALTH NURSING. PT VERBALIZED UNERSTANDING OF DISCHARGE INSTRUCTIONS INCLUDING MEDICATION TEACHING. PT TOOK ALL PERSONAL BELONGINGS AND DISCHARGE PAPERWORK. IV AND ENGLISH AS A SECOND LANGUAGE INSTRUCTOR WERE REMOVED PRIOR TO DISCHARGE.
--- NOTE | 2017-03-11 20:10 | CON ---
[address] [address] CONSULTATION Name: LEMUEL WILEYWITT Room: [address] IN M.R.#: [id number] Admission: 03/05/17 Attend Phys: Carmen Salvador MD Discharge: 03/10/17 Date of : 57 Report #: [id number] THIS REPORT FOR: //name// CC: BERRY physician/PCP Carmen Salvador DATE OF SERVICE: 03/08/2017 HISTORY OF PRESENT ILLNESS: This is a 61-year-old male patient who is not able to provide any reliable history. This patient, according to the nurses, was alert this morning, but he is not that alert anymore. Rather when I saw him, he was checking and was pretty sleepy and he will not wake up even after me and the nurse requesting him multiple times. REVIEW OF SYSTEMS: Positive for multiple problems. This patient is here for acute renal failure. He has a history of polysubstance abuse. He took some methamphetamines sometime, but his methamphetamine is still showing up in his urine. He apparently has chronic back pain. He does have some plate in his back. He apparently had one stimulator at one time. I do not see there is any contraindication for doing an MRI in this patient. His blood pressure has also fluctuated. When he came in, his blood pressure was 186/94, but in between, his blood pressure went about 89-90 systolic. This was his relevant 14-point review of systems. PAST MEDICAL HISTORY: Positive for what looks like substance abuse. He does have a history of strokes. Past medical history is positive for strokes, but he is not able to provide much history in that regard. FAMILY HISTORY: Negative for early age stroke. SOCIAL HISTORY: This patient looks like he has a history of alcohol abuse. PHYSICAL EXAMINATION: NEUROLOGIC: The patient's examinations indicate, I tried to wake him up multiple times. He mumbles few things, but he does not make any sense and his speech is somewhat garbled. Cranial nerve examination 2-12 was attempted, but was very difficult to carry out. I cannot tell about neuromuscular examination because he cannot cooperate. He has no meningeal signs. CARDIAC EXAMINATION: Appears stable. He has some rhonchi. VITAL SIGNS: Blood pressure is 112/60, respirations 18, pulse is 75 and temperature is 99.4. LABORATORY DATA: His labs indicate that he does have WBC in the urine. His creatinine is up at 3.2. His amphetamines are positive. IMPRESSION: I think his most of the condition is because [place] [address] CONSULTATION Name: INEZLEMUEL FIGUEROA Room: [address] IN M.R.#: [id number] Admission: 03/05/17 Attend Phys: Carmen Salvador MD Discharge: 03/10/17 Date of : 57 Report #: [id number] is predisposed to encephalopathy because of prior insults to the brain which show up on his CT scan. He is also jerking, so I will exclude any seizure possibility. I do not know if he can have an MRI or not. If he can, then I would like to do an MRI in this patient. I will do some supplementation with thiamine. RECOMMENDATIONS: I think we will follow up the workup and I ordered that and see what the workup shows. We will readdress the situation tomorrow. He has multiple systemic problems going on, like his blood pressure is fluctuating and it is staying low, he still has renal problems, he has UTI, he has drugs in his urine; all of it can contribute to his problem. I will defer further evaluation and management to you. Thank you very much for this referral. <ELECTRONICALLY SIGNED> By: Juan Buckner MD 03/11/172009 1553 2333Palex Buckner MD /nt
--- NOTE | 2017-03-11 20:10 | EEG ---
[address] [address] EEG STUDY REPORT Name: LEMUEL WILEY Room: [address] IN M.R.#: [id number] Admission: 03/05/17 Attend Phys: Carmen Salvador MD Discharge: 03/10/17 Date of : 57 Report #: [id number] THIS REPORT FOR: //name// CC: BERRY physician/PCP Carmen Salvador DATE OF SERVICE: 03/09/2017 This patient is being evaluated for altered mental status. Background activity in this patient's EEG appeared to be about 6-7 Hz and 30 microvolt. It is a poorly formed background activity. The patient appeared to be drowsy during part of this EEG that is associated with bilateral slowing. Photic stimulation was unremarkable. Throughout the record, no active epileptiform activity was noticed. IMPRESSION: This is an abnormal EEG because it is intermixed with theta range slowing on both sides. That is a nonspecific abnormality, which can occur with encephalopathy, effect of psychotropic medication, dementia, etc. Clinical correlation is recommended. Thank you very much for this referral. <ELECTRONICALLY SIGNED> By: Juan Buckner MD 03/11/172009 1607 1754Palex Buckner MD /nt
--- NOTE | 2017-07-07 09:18 | CON ---
[address] [address] CONSULTATION Name: LEMUEL WILEYWITT Room: [address] IN .R.#: [id number] Admission: 03/05/17 Attend Phys: Carmen Salvador MD Discharge: 03/10/17 Date of : 57 Report #: [id number] THIS REPORT FOR: //name// CC: BERRY physician/PCP Carmen Salvador DATE OF SERVICE: 03/08/2017 REQUESTING PHYSICIAN: Dr. Salvador. REASON FOR CONSULTATION: Acute kidney injury. HISTORY OF PRESENT ILLNESS: The patient is a 61-year-old white man who was admitted to the hospital on 03/05/2017 with main complaints of dizziness, weakness, decreased mentation, low appetite level. He was admitted with the diagnosis of acute kidney injury, UTI, chronic back pain. Initially, they thought that they would be able to dismiss him in the morning, but later on his situation got complicated by rising creatinine. Creatinine went up from 1.1 to 1.5 next day, on 03/07/2017 to 4.7, 03/08/2017 to 5.6 and I was consulted. His toxicology screen also came back positive for methamphetamine and his random vancomycin level was high at 46. PAST MEDICAL HISTORY: Significant for: 1. Morbid obesity. 2. Polysubstance abuse. 3. Coronary artery disease. 4. History of hypertension. FAMILY HISTORY: Noncontributory. SOCIAL HISTORY: Positive for methamphetamine abuse. He denies use of alcohol or tobacco. MEDICATIONS: Prior to admission included lisinopril, oxycodone, sertraline, gabapentin, nitroglycerin, and clonidine. REVIEW OF SYSTEMS: The patient is very lethargic, so cannot collect his review of systems. PHYSICAL EXAMINATION: GENERAL: He is very lethargic. VITAL SIGNS: His blood pressure now is 109/56, heart rate 87, afebrile, blood pressure was as low as 89/59. HEENT: Pupils are round. NECK: Fatty. [place]: [place] [address] CONSULTATION Name: INEZLEMUEL SUPPLY Room: [address] IN ..#: [id number] Admission: 03/05/17 Attend Phys: Carmen Salvador MD Discharge: 03/10/17 Date of : 57 Report #: [id number] CARDIOVASCULAR: Regular rate. ABDOMEN: Obese, soft. LOWER EXTREMITIES: Trace edema. MEDICATIONS: Now reviewed and he was on vancomycin, that was stopped due to high level. He is on meropenem now. I would discontinue vancomycin, do not see a reason to continue for now. Meropenem should cover his possible UTI. ASSESSMENT/PLAN: 1. Acute kidney injury likely due to vancomycin toxicity. Also the fact that his blood pressure was too low and it has also contributed to that. Normally blood pressure ranges around 140-150. The patient with history of hypertension and here his blood pressure dropped in his upper 80s and 90s and again that is too low for him and that differently contributed to his acute kidney injury. 2. Polysubstance abuse. 3. Possible urinary tract infection. 4. Morbid obesity. 5. History of coronary artery disease. PLAN: I would continue with IV fluids. His creatinine is somewhat better now. We will order renal ultrasound. We will stop vancomycin now. Following his labs and intake and outputs. I discussed this case with his nurse. Thank you very much for asking my opinion on acute kidney injury in this patient. <ELECTRONICALLY SIGNED> By: Oren Alvarez MD 07/07/17 0918 1102 1527Alexjenn Alvarez MD /nt
== END 2017-03-10 16:52 | disposition home health service (06) | DRG 871 ==
LOC: M.ERS 08:32 → M.TBA-ER 10:55 → M.2W 10:55
PROVIDERS: Emergency Medicine; Family Medicine; Internal Medicine; Internal Medicine Nephrology; ADMIT Internal Medicine
DX: A41.9 Sepsis, unspecified organism (principal); G92 Toxic encephalopathy; J96.01 Acute respiratory failure with hypoxia; N17.9 Acute kidney failure, unspecified; N39.0 Urinary tract infection, site not specified; G89.29 Other chronic pain; M54.9 Dorsalgia, unspecified; F32.9 Major depressive disorder, single episode, unspecified; E78.00 Pure hypercholesterolemia, unspecified; J44.9 Chronic obstructive pulmonary disease, unspecified; G25.81 Restless legs syndrome; I25.10 Atherosclerotic heart disease of native coronary artery without angina pectoris; F19.10 Other psychoactive substance abuse, uncomplicated; I50.9 Heart failure, unspecified; I11.0 Hypertensive heart disease with heart failure; F11.90 Opioid use, unspecified, uncomplicated; I95.9 Hypotension, unspecified; I25.2 Old myocardial infarction; Z95.5 Presence of coronary angioplasty implant and graft; Z87.442 Personal history of urinary calculi; Z86.73 Personal history of transient ischemic attack (TIA), and cerebral infarction without residual deficits; Z79.82 Long term (current) use of aspirin; Z79.899 Other long term (current) drug therapy; Z88.6 Allergy status to analgesic agent; Z88.8 Allergy status to other drugs, medicaments and biological substances; Z68.37 Body mass index [BMI] 37.0-37.9, adult

== ENCOUNTER 2017-07-11 17:16 | Emergency (ER) | payer MEDICAID ==
[~2017-07-11] VITALS: Ht 172.7 cm; Wt 121.8 kg
[~2017-07-11 17:16] MED LIST changes: +LACTULOSE20 GM/30 M PO
[2017-07-11 17:53] LABS: HEMATOCRIT 43.3 % (42.0-52.0); MCH 26.9 pg (26.0-34.0)
[2017-07-11 17:55] LABS: ABSOLUTE BASOPHILS 0.1 thou/uL (0.0-0.2); ABSOLUTE EOSINOPHILS 0.7 thou/uL (0.0-0.7); ABSOLUTE LYMPHOCYTES 1.9 thou/uL (0.8-5.3); ABSOLUTE MONOCYTES 0.5 thou/uL (0.0-1.2); ABSOLUTE NEUTROPHILS 5.6 thou/uL (1.6-8.1); BASOPHILS 0.8 %; EOSINOPHILS 7.5 %; HEMOGLOBIN 14.5 gm/dL (14.0-18.0); MCHC 33.5 g/dL (28.0-37.0); MCV 80.5 fL (80.0-100.0); MONOCYTES 5.6 %; MPV 8.1 fl. (7.2-11.1); NUCLEATED RBCS 0 /100WBC; PLATELET COUNT* 258 thou/uL (150-400); POLYS 64.1 %; RBC 5.38 mil/uL (4.50-6.00); RDW-CV 15.5 % (10.5-14.5); WBC 8.8 thou/uL (4.0-11.0)
[2017-07-11 17:57] LABS: APTT 25.9 Seconds (25.0-31.3)
[2017-07-11 18:04] LABS: ANION GAP 6 mmol/L (7-16); BUN 9 mg/dL (7-18); CALCIUM 9.3 mg/dL (8.5-10.1); CHLORIDE 101 mmol/L (98-107); CO2 30 mmol/L (21-32); CREATININE 1.1 mg/dL (0.6-1.3); GLUCOSE 202 mg/dL (70-99); POTASSIUM 3.5 mmol/L (3.5-5.1); SODIUM 137 mmol/L (136-145)
[2017-07-11 18:09] LABS: ALBUMIN 3.8 g/dL (3.4-5.0); ALKALINE PHOSPHATASE 213 U/L (46-116); LIPASE 109 U/L (73-393); NT-PRO BRAIN NAT PEPTIDE 129 pg/mL (<300); SGOT 26 U/L (15-37); SGPT 58 U/L (30-65); TOTAL BILIRUBIN 0.7 mg/dL (<0.1-1.0); TOTAL PROTEIN 7.4 g/dL (6.4-8.2); TROPONIN-I LEVEL <0.06 ng/mL (<0.06)
[2017-07-11 20:45] VITALS: BP 122/72
--- NOTE | 2017-07-12 10:03 | EKG ---
[place] [address] ELECTROCARDIOGRAM REPORT Name: INEZLEMUEL WAYNETT Room: [facility]#: [id number] Admission: 07/11/17 Attend Phys: Discharge: 07/11/17 Date of : 57 Report #: [id number] THIS REPORT FOR: //name// [facility] ED Test Date: 2017-07-11 Test Time: 17:22:59 Pat Name: LEMUEL WILEY Department: Room: Gender: M Structural Biologist: Melinda BONILLA : 1955 Requested By: Brie Martinez Order Number: [id number] MD: Wallace Shah Measurements Intervals [place] Rate: 68 P: 29 KS: 222 QRS: -19 QRSD: 105 T: 19 QT: 426 QTc: 454 Interpretive Statements Sinus rhythm Prolonged KS interval Borderline left axis deviation late transition Baseline wander in lead(s) V4 Compared to ECG 03/05/2017 08:39:17 Atrial premature complex(es) no longer present Electronically Signed On 07-12-2017 10:02:55 CDT by Wallace Shah [email or web address] <ELECTRONICALLY SIGNED> By: Wallace Shah MD, FAC 07/12/17 1002 1722 172 Wallace Shah MD, [facility] /EPI
--- NOTE | 2017-07-12 10:09 | EKG ---
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 07/12/17 1009 27 27 Wallace Shah MD, FACC /EPI
== END 2017-07-11 20:45 | disposition home or self-care (01) ==
LOC: M.ERS 17:16
PROVIDERS: Personal Emergency Response Attendant
DX: R07.89 Other chest pain (principal); F32.9 Major depressive disorder, single episode, unspecified; G25.81 Restless legs syndrome; E78.00 Pure hypercholesterolemia, unspecified; J44.9 Chronic obstructive pulmonary disease, unspecified; I11.0 Hypertensive heart disease with heart failure; I50.9 Heart failure, unspecified; F17.220 Nicotine dependence, chewing tobacco, uncomplicated; Z88.5 Allergy status to narcotic agent; Z87.442 Personal history of urinary calculi; Z86.73 Personal history of transient ischemic attack (TIA), and cerebral infarction without residual deficits; Z88.6 Allergy status to analgesic agent

== ENCOUNTER 2017-10-28 11:51 | Emergency (ER) | payer MEDICAID ==
[~2017-10-28] VITALS: Ht 172.7 cm; Wt 113.4 kg
[2017-10-28 12:06] LABS: ABSOLUTE EOSINOPHILS 0.3 thou/uL (0.0-0.7); ABSOLUTE LYMPHOCYTES 1.3 thou/uL (0.8-5.3); ABSOLUTE MONOCYTES 0.4 thou/uL (0.0-1.2); ABSOLUTE NEUTROPHILS 3.4 thou/uL (1.6-8.1); BASOPHILS 0.8 %; EOSINOPHILS 5.2 %; HEMATOCRIT 39.1 % (42.0-52.0); HEMOGLOBIN 13.1 gm/dL (14.0-18.0); LYMPHOCYTES 24.3 %; MCH 26.9 pg (26.0-34.0); MCHC 33.5 g/dL (28.0-37.0); MCV 80.1 fL (80.0-100.0); MONOCYTES 7.4 %; MPV 7.3 fl. (7.2-11.1); NUCLEATED RBCS 0 /100WBC; PLATELET COUNT* 253 thou/uL (150-400); POLYS 62.3 %; RBC 4.88 mil/uL (4.50-6.00); RDW-CV 15.7 % (10.5-14.5); WBC 5.5 thou/uL (4.0-11.0)
[2017-10-28 12:19] LABS: ANION GAP 7 mmol/L (7-16); BUN 12 mg/dL (7-18); CALCIUM 8.4 mg/dL (8.5-10.1); CHLORIDE 102 mmol/L (98-107); CO2 28 mmol/L (21-32); CREATININE 1.3 mg/dL (0.6-1.3); GLUCOSE 211 mg/dL (70-99); POTASSIUM 4.2 mmol/L (3.5-5.1); SODIUM 137 mmol/L (136-145)
[2017-10-28] MEDS ORDERED: NEURONTIN 400400 M1 PO (12:23)
[2017-10-28 12:26] LABS: ALBUMIN 3.4 g/dL (3.4-5.0); ALKALINE PHOSPHATASE 188 U/L (46-116); SGOT 26 U/L (15-37); SGPT 60 U/L (30-65); TOTAL BILIRUBIN 0.4 mg/dL (<0.1-1.0); TOTAL PROTEIN 6.8 g/dL (6.4-8.2); TROPONIN-I LEVEL <0.06 ng/mL (<0.06)
[2017-10-28] MEDS ORDERED: IMDUR 30 MG TAB30 M1 PO (12:26)
[2017-10-28] MEDS ORDERED: NORVASC5 MG PO (12:26)
[2017-10-28] MEDS ORDERED: LOPRESSOR25 PO (12:26)
[2017-10-28] MEDS ORDERED: CYMBALTA30 MG PO (12:27)
[2017-10-28] MEDS ORDERED: LIPITOR80 MG PO (12:27)
[2017-10-28] MEDS ORDERED: MIRAPEX0.125 MG PO (12:28)
[2017-10-28 12:46] LABS: APTT 26.6 Seconds (25.0-31.3); INR 0.9; PROTIME 9.7 Seconds (9.20-11.50)
[2017-10-28 13:38] LABS: POC CA IONIZED 4.9 mg/dL (4.5-5.3); POC CREATININE 1.2 mg/dL (0.6-1.3); POC HEMOGLOBIN 13.3 g/dL (12.0-17.0); POC POTASSIUM 4.2 mmol/L (3.5-4.9)
[2017-10-28 14:00] VITALS: BP 144/78
--- NOTE | 2017-10-28 16:48 | EKG ---
[place] [address] ELECTROCARDIOGRAM REPORT Name: INEZLEMUEL WAYNETT Room: [facility]#: [id number] Admission: 10/28/17 Attend Phys: Discharge: 10/28/17 Date of : 57 Report #: [id number] THIS REPORT FOR: //name// [facility] ED Test Date: 2017-10-28 Test Time: 12:22:52 Pat Name: LEMUEL WILEY Department: Room: Gender: M Chief Nuclear Medicine Technologist: Melinda SCHERER : 1955 Requested By: Ranjit Ward Order Number: [id number] MD: Alvino Roberts Measurements Intervals [place] Rate: 71 P: 32 LA: 224 QRS: -10 QRSD: 104 T: 64 QT: 390 QTc: 424 Interpretive Statements Sinus rhythm Prolonged [place] interval Borderline T abnormalities, anterior leads Compared to ECG 07/11/2017 20:28:08 No significant changes Electronically Signed On 10-28-2017 16:48:29 CDT by Alvino Roberts [email or web address] <ELECTRONICALLY SIGNED> By: Alvino Roberts MD, [facility] 10/28/17 1648 1222 1222 Alvino Roberts MD, [facility] /EPI
== END 2017-10-28 14:01 | disposition home or self-care (01) ==
LOC: M.ERS 11:51
PROVIDERS: Family Medicine
DX: R41.82 Altered mental status, unspecified (principal); F32.9 Major depressive disorder, single episode, unspecified; E78.00 Pure hypercholesterolemia, unspecified; J44.9 Chronic obstructive pulmonary disease, unspecified; I11.0 Hypertensive heart disease with heart failure; I50.9 Heart failure, unspecified; Z95.5 Presence of coronary angioplasty implant and graft; I25.2 Old myocardial infarction; F17.200 Nicotine dependence, unspecified, uncomplicated; Z88.5 Allergy status to narcotic agent; Z88.8 Allergy status to other drugs, medicaments and biological substances

== ENCOUNTER 2017-11-16 17:36 | Emergency (ER) | payer MEDICAID ==
[~2017-11-16] VITALS: Ht 180.3 cm; Wt 119.8 kg
[~2017-11-16 17:36] MED LIST changes: +CYMBALTA30 MG PO; +IMDUR 30 MG TAB30 M1 PO; +LOPRESSOR25 PO; +MIRAPEX0.125 MG PO; +NEURONTIN 400400 M1 PO; +NORVASC5 MG PO
[2017-11-16 17:54] LABS: ABSOLUTE BASOPHILS 0.1 thou/uL (0.0-0.2); ABSOLUTE EOSINOPHILS 0.4 thou/uL (0.0-0.7); ABSOLUTE LYMPHOCYTES 1.5 thou/uL (0.8-5.3); ABSOLUTE MONOCYTES 0.4 thou/uL (0.0-1.2); ABSOLUTE NEUTROPHILS 3.9 thou/uL (1.6-8.1); HEMATOCRIT 42.7 % (42.0-52.0); HEMOGLOBIN 14.1 gm/dL (14.0-18.0); LYMPHOCYTES 24.3 %; MCH 26.6 pg (26.0-34.0); MCHC 33.1 g/dL (28.0-37.0); MCV 80.4 fL (80.0-100.0); MONOCYTES 6.9 %; MPV 7.6 fl. (7.2-11.1); NUCLEATED RBCS 0 /100WBC; PLATELET COUNT* 250 thou/uL (150-400); POLYS 61.8 %; RBC 5.32 mil/uL (4.50-6.00); RDW-CV 15.8 % (10.5-14.5); WBC 6.3 thou/uL (4.0-11.0)
[2017-11-16 18:00] LABS: ANION GAP 6 mmol/L (7-16); BUN 8 mg/dL (7-18); CALCIUM 8.5 mg/dL (8.5-10.1); CHLORIDE 106 mmol/L (98-107); CO2 31 mmol/L (21-32); CREATININE 1.3 mg/dL (0.6-1.3); GLUCOSE 138 mg/dL (70-99); POTASSIUM 3.9 mmol/L (3.5-5.1); SODIUM 143 mmol/L (136-145)
[2017-11-16 18:02] LABS: APTT 26.5 Seconds (25.0-31.3)
[2017-11-16 18:19] LABS: ALBUMIN 3.6 g/dL (3.4-5.0); ALKALINE PHOSPHATASE 180 U/L (46-116); CK-MB MASS 4.3 ng/mL (<0.5-3.6); LIPASE 116 U/L (73-393); MAGNESIUM 2.3 mg/dL (1.8-2.4); NT-PRO BRAIN NAT PEPTIDE 56 pg/mL (<300); SGOT 33 U/L (15-37); SGPT 70 U/L (30-65); TOTAL BILIRUBIN 0.7 mg/dL (<0.1-1.0); TROPONIN-I LEVEL <0.06 ng/mL (<0.06)
[2017-11-16 18:45] VITALS: BP 159/86
== END 2017-11-16 18:46 | disposition home or self-care (01) ==
LOC: M.ERS 17:36
PROVIDERS: Family Medicine
DX: R07.89 Other chest pain (principal); F32.9 Major depressive disorder, single episode, unspecified; G25.81 Restless legs syndrome; J44.9 Chronic obstructive pulmonary disease, unspecified; E78.00 Pure hypercholesterolemia, unspecified; I11.0 Hypertensive heart disease with heart failure; I50.9 Heart failure, unspecified; F17.220 Nicotine dependence, chewing tobacco, uncomplicated; Z95.5 Presence of coronary angioplasty implant and graft; Z88.5 Allergy status to narcotic agent; Z88.6 Allergy status to analgesic agent

== ENCOUNTER 2017-11-17 00:29 | Emergency (ER) | payer MEDICAID ==
[~2017-11-17] VITALS: Ht 180.3 cm; Wt 119.8 kg
[2017-11-17 01:02] LABS: ABSOLUTE BASOPHILS 0.1 thou/uL (0.0-0.2); ABSOLUTE EOSINOPHILS 0.4 thou/uL (0.0-0.7); ABSOLUTE LYMPHOCYTES 1.9 thou/uL (0.8-5.3); ABSOLUTE MONOCYTES 0.6 thou/uL (0.0-1.2); ABSOLUTE NEUTROPHILS 4.2 thou/uL (1.6-8.1); BASOPHILS 0.8 %; EOSINOPHILS 5.1 %; HEMATOCRIT 44.1 % (42.0-52.0); HEMOGLOBIN 14.5 gm/dL (14.0-18.0); LYMPHOCYTES 27.1 %; MCH 26.7 pg (26.0-34.0); MCHC 32.9 g/dL (28.0-37.0); MCV 81.2 fL (80.0-100.0); MONOCYTES 7.9 %; NUCLEATED RBCS 0 /100WBC; PLATELET COUNT* 259 thou/uL (150-400); POLYS 59.1 %; RBC 5.43 mil/uL (4.50-6.00); RDW-CV 15.8 % (10.5-14.5)
[2017-11-17 01:08] LABS: PROTIME 9.8 Seconds (9.20-11.50)
[2017-11-17 01:10] LABS: ANION GAP 8 mmol/L (7-16); CHLORIDE 105 mmol/L (98-107); CO2 28 mmol/L (21-32); CREATININE 1.3 mg/dL (0.6-1.3); GLUCOSE 122 mg/dL (70-99); LIPASE 153 U/L (73-393); POTASSIUM 3.8 mmol/L (3.5-5.1); SGOT 37 U/L (15-37); SODIUM 141 mmol/L (136-145)
[2017-11-17 01:11] LABS: ALBUMIN 3.9 g/dL (3.4-5.0); ALKALINE PHOSPHATASE 186 U/L (46-116); CALCIUM 8.8 mg/dL (8.5-10.1); SGPT 78 U/L (30-65); TOTAL BILIRUBIN 0.7 mg/dL (<0.1-1.0); TOTAL PROTEIN 7.5 g/dL (6.4-8.2)
[2017-11-17 01:19] LABS: BUN 10 mg/dL (7-18); NT-PRO BRAIN NAT PEPTIDE 53 pg/mL (<300); TROPONIN-I LEVEL <0.06 ng/mL (<0.06)
[2017-11-17 05:45] VITALS: BP 158/99
--- NOTE | 2017-11-17 16:30 | EKG ---
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: ALEX : 1955 Requested By: Ranjit Ward Order Number: [id number] MD: Gregory Cooney Measurements Intervals [place] Rate: 59 P: 32 WI: 233 QRS: -25 QRSD: 103 T: 81 QT: 427 QTc: 423 Interpretive Statements Sinus rhythm Prolonged [place] interval Borderline left axis deviation Borderline T abnormalities, anterior leads Compared to ECG 10/28/2017 12:22:52 No significant changes Electronically Signed On 11-17-2017 16:30:06 CDT by Gregory Cooney [email or web address] <ELECTRONICALLY SIGNED> By: Gregory Cooney MD, [facility] 11/17/17 1630 174 174 Gregory Cooney MD, [facility] /EPI
--- NOTE | 2017-11-17 16:35 | EKG ---
[place] [address] ELECTROCARDIOGRAM REPORT Name: INEZ,LEMUEL WAYNETT [id number] Admission: 11/17/17 Attend Phys: Discharge: 11/17/17 Date of : 57 Report #: [id number] THIS REPORT FOR: //name// [facility] ED Test Date: 2017-11-17 Test Time: 00:32:13 Pat Name: LEMUEL WILEY Department: Room: Gender: M Department Traffic Freight Router: ALEXANDER : 1955 Requested By: Natty Cruz Order Number: [id number] MD: Gregory Cooney Measurements Intervals [place] Rate: 69 P: NC: QRS: 30 QRSD: 151 T: 81 QT: 435 QTc: 466 Interpretive Statements Sinus rhythm Nonspecific intraventricular conduction delay Baseline wander in lead(s) I,III,aVL Electronically Signed On 11-17-2017 16:34:47 CDT by Gregory Cooney [email or web address] <ELECTRONICALLY SIGNED> By: Gregory Cooney MD, [facility] 11/17/17 1634 0032 0032 Gregory Cooney MD, [facility]ACC /EPI
== END 2017-11-17 05:53 | disposition home or self-care (01) ==
LOC: M.ERS 00:29
PROVIDERS: Emergency Medicine
DX: R07.89 Other chest pain (principal); I11.0 Hypertensive heart disease with heart failure; I50.9 Heart failure, unspecified; F32.9 Major depressive disorder, single episode, unspecified; G25.81 Restless legs syndrome; Z87.442 Personal history of urinary calculi; F17.220 Nicotine dependence, chewing tobacco, uncomplicated; Z88.5 Allergy status to narcotic agent; Z88.6 Allergy status to analgesic agent; Z95.5 Presence of coronary angioplasty implant and graft